=== PATIENT | male | born 1955 | race Caucasian/White ===

== ENCOUNTER 2019-03-16 16:43 | Emergency (ER) | payer MEDICAID, OTHER ==
[2019-03-16 16:58] VITALS: BP 147/62; PULSE 88
--- NOTE | 2019-03-16 17:57 | EDM.PDOC ---
ED HPI GENERAL MEDICAL PROBLEM - General Chief Complaint: Head Injury Stated Complaint: HEAD INJURY Time Seen by Provider: 03/16/19 16:55 Source of Information: Reports: Patient History Limitations: Reports: No Limitations - History of Present Illness INITIAL COMMENTS - FREE TEXT/NARRATIVE: The patient presents with a headache after a fall. He slipped on the ice and fell and hit his head. He also has some lower neck pain. He had no LOC. He is not on any blood thinners. He has no other injuries. He has no numbness or weakness. He has no nausea or vomiting. Onset: Sudden Duration: Minutes: Location: Reports: Head, Neck Quality: Reports: Sharp Severity: Moderate Improves with: Reports: None Worsens with: Reports: None Associated Symptoms: Reports: Headaches. Denies: Confusion, Chest Pain, Fever/ Chills, Nausea/Vomiting, Shortness of Breath Upper Back Pain Score (Numeric/FACES): 6 - Related Data Allergies Allergy/AdvReac Type Severity Reaction Status Date / Time No Known Allergies Allergy Verified 04/30/14 22:28 Home Meds: Home Meds Metoprolol Tartrate [Lopressor] 50 mg PO Q12HR #60 tab 05/01/14 [Rx] Potassium Chloride 10 meq PO BID #60 cap.er 05/01/14 [Rx] Social & Family History - Tobacco Use Smoking Status *Q: Unknown Ever Smoked ED ROS GENERAL - Review of Systems Review Of Systems: See Below Constitutional: Reports: No Symptoms HEENT: Reports: No Symptoms Respiratory: Reports: No Symptoms Cardiovascular: Reports: No Symptoms Endocrine: Reports: No Symptoms GI/Abdominal: Reports: No Symptoms : Reports: No Symptoms Musculoskeletal: Reports: Neck Pain Neurological: Reports: Headache ED EXAM, HEAD INJURY - Physical Exam Exam: See Below Exam Limited By: No Limitations General Appearance: Alert, No Apparent Distress Head: Other (Pain upon palpation and edema to the occipital region) Eyes: Bilateral Eye: EOMI Ears: Normal External Exam Nose: Normal Inspection Neck: Other (Pain upon palpation to the base of his neck) Respiratory: No Respiratory Distress, Lungs Clear, Normal Breath Sounds Cardiovascular: Regular Rate, Rhythm, No Edema, No Murmur GI/Abdominal Exam: Soft, Non-Tender, No Organomegaly, No Mass Back Exam: Normal Inspection Extremities: Normal Inspection Course - Vital Signs Last Recorded V/S: Last Vital Signs Temp 98.5 F 03/16/19 16:54 Pulse 88 03/16/19 16:54 Resp 18 03/16/19 16:54 BP 147/62 H 03/16/19 16:54 Pulse Ox 97 03/16/19 16:54 - Orders/Labs/Meds Orders: Active Orders 24 hr Category Date Time Status Cervical Spine wo Cont [CT] Stat Exams 03/16/19 17:02 Ordered Head wo Cont [CT] Stat Exams 03/16/19 17:01 Taken - Re-Assessments/Exams Free Text/Narrative Re-Assessment/Exam: 03/16/19 17:[address] of his neck and head. The CT of the cervical spine shows degenerative disc and facet disease without acute bony abnormality. His CT of his head shows lacunar infarcts and no acute intracranial abnormality. I will discharge him home. Departure - Departure Time of Disposition: 18:00 Disposition: Home, Self-Care 01 Condition: Good Clinical Impression: Fall Qualifiers: Encounter type: initial encounter Qualified Code(s): W19.XXXA - Unspecified fall, initial encounter Head injury Qualifiers: Encounter type: initial encounter Qualified Code(s): S09.90XA - Unspecified injury of head, initial encounter Concussion Qualifiers: Encounter type: initial encounter Loss of consciousness presence/duration: without LOC Qualified Code(s): S06.0X0A - Concussion without loss of consciousness, initial encounter - Discharge Information *PRESCRIPTION DRUG MONITORING PROGRAM REVIEWED*: No *COPY OF PRESCRIPTION DRUG MONITORING REPORT IN PATIENT RANJITH: No Referrals: Sonido Hays MD [Primary Care Provider] - 1 Week Additional Instructions: Take tylenol or motrin for any headache. Please return if you are worse such as a bad headache, vomiting or if you are not acting right. - My Orders Last 24 Hours: My Active Orders 03/16/19 17:01 Head wo Cont [CT] Stat 03/16/19 17:02 Cervical Spine wo Cont [CT] Stat - Assessment/Plan Last 24 Hours: My Active Orders 03/16/19 17:01 Head wo Cont [CT] Stat 03/16/19 17:02 Cervical Spine wo Cont [CT] Stat
--- NOTE | 2019-03-17 11:07 | CT ---
Head CT Technique: Multiple axial sections through the brain were obtained. Comparison: Prior head CT study of 04/30/14. Findings: Ventricles along with basal cisterns and sulci over the convexities are mildly prominent. Slight diminished density is noted within the periventricular white matter which is compatible with mild small vessel ischemic demyelination change. Several old lacunar infarcts are noted within the periventricular white matter. No evidence of intracranial hemorrhage. No midline shift or mass effect is seen. Mild areas of soft tissue thickening is seen within the ethmoid sinuses. Retention cyst is noted within the left maxillary sinus measuring 1.0 cm. No acute calvarial abnormality is seen. Impression: 1. Senescent change as noted above. Other findings which are believed to be incidental. 2. No acute intracranial abnormality or acute calvarial abnormality is identified. Diagnostic code #2 This report was dictated in [place] Standard Time I agree with preliminary report issued by [facility] ([facility] report finalized on 03/16/19, 6:32 PM Central Time)
--- NOTE | 2019-03-17 11:07 | CT ---
CT cervical spine Technique: Multiple axial sections were obtained from above C1 inferiorly to the bottom of T1. Reconstructed sagittal and coronal images were reviewed. Comparison: No prior cervical spine imaging is available. Findings: Mild degenerative change is noted between the dens and anterior arch of C1. Severe disc space narrowing is noted at C3-C4 with mild posterior osteophytes and larger anterior osteophytes. Mild disc space narrowing is noted at C4-C5 with slight anterior osteophytes. Severe disc space narrowing is noted at C5-C6 with mild posterior osteophytes and larger anterior osteophytes. Mild disc space narrowing is noted C6-C7 and C7-T1. Mild degenerative change is noted within the apophyseal joints of the cervical spine. Mild degenerative spurring is noted within the uncovertebral joints mostly at C3-C4 and C4-C5. Mild left-sided neural foraminal stenosis is noted at C3-C4. Other neural foramina are felt to be fairly well patent. No fracture or abnormal subluxation is seen. Impression: 1. Degenerative change. 2. Nothing acute is appreciated. Diagnostic code #2 This report was dictated in [place] Standard Time I agree with preliminary report issued by [facility] ([facility] report finalized on 03/16/19, 6:29 PM Central Time)
== END 2019-03-16 18:19 | disposition home or self-care (01) ==
LOC: JD.ED 16:43
DX: S06.0X0A Concussion without loss of consciousness, initial encounter (principal); W00.0XXA Fall on same level due to ice and snow, initial encounter
CPT/HCPCS: 70450; 70450-26; 72125; 72125-26; 99282; 99284-25

== ENCOUNTER 2019-04-14 08:23 | Emergency (ER) | payer MEDICAID ==
[2019-04-14 08:39] VITALS: BP 174/94; PULSE 94
[2019-04-14] MEDS ORDERED: Lidocaine/EPINEPHrine/Tetracaine Soln 1 ML TOP ONE (08:56)
[2019-04-14] MEDS ORDERED: Lidocaine 1% 10 ML MDV INJECT ONE (08:57)
--- NOTE | 2019-04-14 09:24 | EDM.PDOC ---
ED HPI GENERAL MEDICAL PROBLEM - General Chief Complaint: General Stated Complaint: ELBOW SWOLLEN AND TONGUE BLEEDING FOR 3 DAYS Time Seen by Provider: 04/14/19 08:32 Source of Information: Reports: Patient History Limitations: Reports: No Limitations - History of Present Illness INITIAL COMMENTS - FREE TEXT/NARRATIVE: The patient presents with left elbow swelling and tongue bleeding. He said he bit his tongue about 36 hours ago and he still is bleeding. He recently started blood thinners 2 weeks ago. He has a bad valve and they are trying the blood thinners first to avoid having to replace the valve. He also has swelling to his left elbow that he noticed yesterday. He did not injure his elbow in any way. He was at the clinic at [facility] and they were reluctant to drain it thinking this could be blood. He has no pain and this has never happened before. Onset: Gradual Duration: Day(s): Location: Reports: Upper Extremity, Left (elbow) Improves with: Reports: None Worsens with: Reports: None Associated Symptoms: Reports: No Other Symptoms - Related Data Allergies Allergy/AdvReac Type Severity Reaction Status Date / Time sonia Allergy Anaphylactic Verified 04/14/19 08:39 Shock Home Meds: Home Meds Metoprolol Tartrate [Lopressor] 50 mg PO Q12HR #60 tab 05/01/14 [Rx] Aspirin [Halfprin] 81 mg PO DAILY 04/14/19 [History] Cannabidiol (Cbd) Extract [CBD Oil] 17 mg PO ASDIRECTED 04/14/19 [History] Rosuvastatin [Crestor] 10 mg PO DAILY 04/14/19 [History] Warfarin Sodium [Coumadin] 6 mg PO DAILY 04/14/19 [History] Past Medical History HEENT History: Reports: Allergic Rhinitis, Impaired Vision Cardiovascular History: Reports: Hypertension Neurological History: Reports: Neuropathy, Peripheral - Past Surgical History Cardiovascular Surgical History: Reports: Valve Replacement, Other (See Below) Other Cardiovascular Surgeries/Procedures: 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, Social & Family History - Tobacco Use Smoking Status *Q: Never Smoker - Caffeine Use Caffeine Use: Reports: None - Recreational Drug Use Recreational Drug Use: No ED ROS GENERAL - Review of Systems Review Of Systems: See Below Constitutional: Reports: No Symptoms HEENT: Reports: Other (Bleeding tongue) Respiratory: Reports: No Symptoms Cardiovascular: Reports: No Symptoms Endocrine: Reports: No Symptoms GI/Abdominal: Reports: No Symptoms : Reports: No Symptoms Musculoskeletal: Reports: Other (Left elbow swelling) ED EXAM, GENERAL - Physical Exam Exam: See Below Exam Limited By: No Limitations General Appearance: Alert, No Apparent Distress Ears: Normal External Exam Nose: Normal Inspection Throat/Mouth: Other (bleeding from the right tip of the tongue) Head: Atraumatic, Normocephalic Neck: Normal Inspection Respiratory/Chest: No Respiratory Distress, Lungs Clear, Normal Breath Sounds Cardiovascular: Regular Rate, Rhythm, No Edema, No Murmur GI/Abdominal: Soft, Non-Tender, No Organomegaly, No Mass Extremities: Other (Edema to the left alechronon bursa. No pain upon palpation and no erythema) Course - Vital Signs Last Recorded V/S: Last Vital Signs Temp 97.9 F 04/14/19 08:35 Pulse 94 04/14/19 08:35 Resp 19 04/14/19 08:35 BP 174/94 H 04/14/19 08:35 Pulse Ox 100 04/14/19 08:35 - Orders/Labs/Meds Orders: Active Orders 24 hr Category Date Time Status Tranexamic Acid [Cyklokapron] 1,000 mg Med 04/14/19 10:45 Active Sodium Chloride 0.9% [Normal Saline] 100 ml IV ONETIME Medication Orders Tranexamic Acid 1,000 mg/ (Sodium Chloride) 110 mls @ 400 mls/hr IV ONETIME OSWALD Meds: Medications Generic Name Dose Route Start Last Admin Trade Name Freq PRN Reason Stop Dose Admin Tranexamic Acid 1,000 mg/ 110 mls @ 400 mls/hr 04/14/19 10:45 Sodium Chloride IV ONETIME OSWALD Discontinued Medications Generic Name Dose Route Start Last Admin Trade Name Freq PRN Reason Stop Dose Admin Lidocaine HCl 10 ml 04/14/19 08:57 04/14/19 09:05 Xylocaine 1% INJECT 04/14/19 08:58 10 ml ONETIME ONE Administration Lidocaine/Epinephrine 20 ml 04/14/19 10:36 04/14/19 10:53 Xylocaine 1% With Epinephrine 1:100,000 INJECT 04/14/19 10:37 20 ml ONETIME ONE Administration Lidocaine/Tetracaine 1 ml 04/14/19 08:56 04/14/19 09:04 Let Soln TOP 04/14/19 08:57 1 ml ONETIME ONE Administration - Re-Assessments/Exams Free Text/Narrative Re-Assessment/Exam: 04/14/19 09:24 I put some LET on his elbow and I will drain his elbow. I will also try to stop the bleeding on his tongue. 04/14/19 11:55 I attempted to use some silver nitrate to stop the bleeding on his tongue but it did not help. I then tried some quick clot with TXA and lidocaine with epinephrine. That did slow the bleeding some. The coumadin clinic called and hit INR is 5. They will have him hold the coumadin today. I will not be putting a needle into his elbow. I will refer him to Dr Alejandra. Departure - Departure Time of Disposition: 12:00 Disposition: Home, Self-Care 01 Condition: Good Clinical Impression: Olecranon bursitis, left elbow, Supratherapeutic INR Abrasion of tongue Qualifiers: Encounter type: initial encounter Qualified Code(s): S00.512A - Abrasion of oral cavity, initial encounter - Discharge Information *PRESCRIPTION DRUG MONITORING PROGRAM REVIEWED*: Not Applicable *COPY OF PRESCRIPTION DRUG MONITORING REPORT IN PATIENT RANJITH: Not Applicable Referrals: Sonido Hays MD [Primary Care Provider] - Forms: ED Department Discharge Additional Instructions: Call the coumadin clinic and set up a plan for your next coumadin dose. Use the quick clot sponges as needed for any more bleeding on your tongue. Please return if you are worse. Sepsis Event Note - Evaluation Sepsis Screening Result: No Definite Risk - Focused Exam Vital Signs: Vital Signs Temp Pulse Resp BP Pulse Ox 04/14/19 08:35 97.9 F 94 19 174/94 H 100 Date Exam was Performed: 04/14/19 Time Exam was Performed: 11:55 - My Orders Last 24 Hours: My Active Orders 04/14/19 10:45 Tranexamic Acid [Cyklokapron] 1,000 mg Sodium Chloride 0.9% [Normal Saline] 100 ml IV ONETIME - Assessment/Plan Last 24 Hours: My Active Orders 04/14/19 10:45 Tranexamic Acid [Cyklokapron] 1,000 mg Sodium Chloride 0.9% [Normal Saline] 100 ml IV ONETIME
[2019-04-14] MEDS ORDERED: Lidocaine 1% with EPINEPHrine 1:100,000 20 ML MDV INJECT ONE (10:36)
[2019-04-14] MEDS ORDERED: Tranexamic Acid 1,000 MG in Sodium Chloride 0.9% 100 ML IV SCH (10:45)
== END 2019-04-14 12:14 | disposition home or self-care (01) ==
LOC: JD.ED 08:23
DX: S00.512A Abrasion of oral cavity, initial encounter (principal); M70.22 Olecranon bursitis, left elbow; R79.1 Abnormal coagulation profile; I10 Essential (primary) hypertension; Z91.048 Other nonmedicinal substance allergy status; Z79.82 Long term (current) use of aspirin; Z79.899 Other long term (current) drug therapy; X58.XXXA Exposure to other specified factors, initial encounter
CPT/HCPCS: 99283; J2001

== ENCOUNTER 2019-04-15 21:16 | Emergency (ER) | payer MEDICAID ==
[2019-04-15 21:33] VITALS: BP 143/96; PULSE 88
--- NOTE | 2019-04-15 21:38 | EDM.PDOC ---
ED HPI GENERAL MEDICAL PROBLEM - General Chief Complaint: General Stated Complaint: SANTOSUNGE IS BLEEDING AND BLOOD IN URINE Time Seen by Provider: 04/15/19 21:38 - History of Present Illness INITIAL COMMENTS - FREE TEXT/NARRATIVE: 63-year-old male presents to the emergency room with continued bleeding. 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 Yesterday the patient was seen here his INR was 5 he was bleeding into an elbow no apparent trauma and he did inadvertently bite his tongue and has had continued bleeding with that. They got the bleeding to slow down on the tongue but it did not completely stop today the patient noticed that his urine was turning red to maroon color. His tongue continues to bleed. The Coumadin clinic said his INR was down to 3.8 earlier today. The patient does not have any dizziness lightheadedness. - Related Data Allergies Allergy/AdvReac Type Severity Reaction Status Date / Time sonia Allergy Anaphylactic Verified 04/15/19 21:34 Shock Home Meds: Home Meds Metoprolol Tartrate [Lopressor] 50 mg PO Q12HR #60 tab 05/01/14 [Rx] Aspirin [Halfprin] 81 mg PO DAILY 04/14/19 [History] Cannabidiol (Cbd) Extract [CBD Oil] 17 mg PO ASDIRECTED 04/14/19 [History] Rosuvastatin [Crestor] 10 mg PO DAILY 04/14/19 [History] Warfarin Sodium [Coumadin] 6 mg PO DAILY 04/14/19 [History] Past Medical History HEENT History: Reports: Allergic Rhinitis, Impaired Vision Cardiovascular History: Reports: Hypertension Neurological History: Reports: Neuropathy, Peripheral - Past Surgical History Cardiovascular Surgical History: Reports: Valve Replacement, Other (See Below) Other Cardiovascular Surgeries/Procedures: 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, Social & Family History - Tobacco Use Smoking Status *Q: Never Smoker - Caffeine Use Caffeine Use: Reports: Soda - Recreational Drug Use Recreational Drug Use: No ED ROS GENERAL - Review of Systems Review Of Systems: See Below Constitutional: Reports: No Symptoms Respiratory: Reports: No Symptoms Cardiovascular: Reports: No Symptoms GI/Abdominal: Reports: No Symptoms ED EXAM, GENERAL - Physical Exam Exam: See Below Exam Limited By: No Limitations General Appearance: Alert, No Apparent Distress Throat/Mouth: Other (The area on his tongue is lightly bleeding.) Respiratory/Chest: No Respiratory Distress, Lungs Clear, Normal Breath Sounds Cardiovascular: Regular Rate, Rhythm, No Edema, Systolic Murmur (Rumbling murmur heard best in the upper sternal regions both right and left this is a 3/ 6 systolic murmur) (Male) Exam: Other (Hematuria noted on his urine sample) Back Exam: Normal Inspection. No: CVA Tenderness (L), CVA Tenderness (R) Neurological: Alert, Oriented, Normal Cognition Course - Vital Signs Last Recorded V/S: Last Vital Signs Temp 37.2 C 04/15/19 21:30 Pulse 88 04/15/19 21:30 Resp 15 04/15/19 21:30 BP 143/96 H 04/15/19 21:30 Pulse Ox 96 04/15/19 21:30 - Orders/Labs/Meds Orders: Active Orders 24 hr Category Date Time Status UA W/MICROSCOPIC [URIN] Stat Lab 04/15/19 22:29 Results Labs: Laboratory Tests 04/15/19 04/15/19 04/15/19 Range/Units 21:55 21:55 22:29 WBC 7.77 (4.23-9.07) K/mm3 RBC 4.24 L (4.63-6.08) M/mm3 Hgb 12.8 L D (13.7-17.5) gm/dl Hct 37.4 L (40.1-51.0) % MCV 88.2 (79.0-92.2) fl MCH 30.2 (25.7-32.2) pg MCHC 34.2 (32.2-35.5) g/dl RDW Std Deviation 44.1 H (35.1-43.9) fL Plt Count 278 (163-337) K/mm3 MPV 10.4 (9.4-12.3) fl Neutrophils % (Manual) 64 H (40-60) % Band Neutrophils % 0 (0-10) % Lymphocytes % (Manual) 28 (20-40) % Atypical Lymphs % 0 % Monocytes % (Manual) 8 (2-10) % Eosinophils % (Manual) 0 L (0.8-7.0) % Basophils % (Manual) 0 L (0.2-1.2) Platelet Estimate Adequate RBC Morph Comment Normal PT 32.9 H (9.7-12.0) SECONDS INR 3.23 Urine Color Red H (Yellow) Urine Appearance Turbid H (Clear) Urine pH 5.5 (5.0-8.0) Ur Specific [place] 1.025 (1.005-1.030) Urine Protein 3+ H (Negative) Urine Glucose (UA) Negative (Negative) Urine Ketones 1+ H (Negative) Urine Occult Blood 3+ H (Negative) Urine Nitrite Negative (Negative) Urine Bilirubin 3+ H (Negative) Urine Urobilinogen 4.0 H (0.2-1.0) Ur Leukocyte Esterase 3+ H (Negative) - Re-Assessments/Exams Free Text/Narrative Re-Assessment/Exam: 04/15/19 22:55 Patient's hemoglobin hematocrit is 12.8 and 37.4% respectively. This is down slightly from 4 years ago do not know the significance of that. His INR is down to 3.23. We attempted to use some quick clot on his tongue this did stop the bleeding. His left elbow is wrapped in Momo wrap to help prevent extension. He has significant hematuria. I do not believe this is infected given the clinical scenario and after discussion with the patient we will not start antibiotics empirically. Also discussed with the patient is vitamin K or FFP and he is quite comfortable waiting and watching. I discussed the patient's case with Dr. Sommers cardiothoracic surgeon at [facility] in [place] flotation tank operator for the patient's surgeon Dr. Humphrey and his recommendation is just stop the Coumadin follow-up with Dr. Humphrey at the end of this week or first part of next week. 04/15/19 23:05 Departure - Departure Time of Disposition: 22:57 Disposition: Home, Self-Care 01 Clinical Impression: Warfarin-induced coagulopathy - Discharge Information Referrals: Sonido Hays MD [Primary Care Provider] - Forms: ED Department Discharge Additional Instructions: Return to the emergency room with any questions problems or worsening symptoms. Use the quick clot to your tongue as needed. As we discussed stop the Coumadin. Follow-up with Dr. Humphrey on for an appointment to discuss this. Follow-up with Dr. Hays to make sure the hematuria or blood in your urine resolves Sepsis Event Note - Evaluation Sepsis Screening Result: No Definite Risk - Focused Exam Vital Signs: Vital Signs Temp Pulse Resp BP Pulse Ox 04/15/19 21:30 37.2 C 88 15 143/96 H 96 Date Exam was Performed: 04/15/19 Time Exam was Performed: 22:45 - My Orders Last 24 Hours: My Active Orders 04/15/19 22:29 UA W/MICROSCOPIC [URIN] Stat - Assessment/Plan Last 24 Hours: My Active Orders 04/15/19 22:29 UA W/MICROSCOPIC [URIN] Stat
== END 2019-04-15 23:15 | disposition home or self-care (01) ==
LOC: JD.ED 21:16
DX: D68.9 Coagulation defect, unspecified (principal); I10 Essential (primary) hypertension; Z79.82 Long term (current) use of aspirin; Z79.01 Long term (current) use of anticoagulants; Z91.018 Allergy to other foods; Z79.899 Other long term (current) drug therapy
CPT/HCPCS: 36415; 81001; 85007; 85027; 85610; 99283

== ENCOUNTER 2019-09-20 10:04 | Emergency (ER) | payer MEDICAID ==
[2019-09-20 10:13] VITALS: PULSE 78
[2019-09-20 10:16] VITALS: BP 148/85
--- NOTE | 2019-09-20 10:26 | EDM.PDOC ---
ED HPI GENERAL MEDICAL PROBLEM - General Chief Complaint: Lower Extremity Injury/Pain Stated Complaint: L LEG PAIN/POST HEART SURGERY Time Seen by Provider: 09/20/19 10:14 Source of Information: Reports: Patient History Limitations: Reports: No Limitations - History of Present Illness INITIAL COMMENTS - FREE TEXT/NARRATIVE: The patient presents with left knee pain. This started yesterday. He recently had open heart surgery where they replaced a valve. He is on coumadin. He had his INR checked at the clinic and it was 2.3 yesterday. When he was out for that that is when the pain started. He has no injury. He has pain behind the knee. He has known cartilage issues with both knees but no pain like this before. He has no history of DVT or PE. He has no chest pain or shortness of breath. His surgery was August 14. Onset: Gradual Duration: Day(s): (Yesterday) Location: Reports: Lower Extremity, Left (knee) Quality: Reports: Sharp Severity: Moderate Improves with: Reports: Immobilization Worsens with: Reports: Movement Context: Denies: Trauma Associated Symptoms: Reports: No Other Symptoms Left Knee Pain Score (Numeric/FACES): 7 - Related Data Allergies Allergy/AdvReac Type Severity Reaction Status Date / Time sonia Allergy Anaphylactic Verified 09/20/19 10:12 Shock Home Meds: Home Meds Rosuvastatin [Crestor] 20 mg PO DAILY 04/14/19 [History] Warfarin Sodium [Coumadin] 5 mg PO ASDIRECTED 04/14/19 [History] Enoxaparin [Lovenox] 100 mg SUBCUT Q12H 09/20/19 [History] Losartan [Cozaar] 75 mg PO DAILY 09/20/19 [History] carvediloL [Carvedilol] 6.25 mg PO BID 09/20/19 [History] hydroCHLOROthiazide [Hydrochlorothiazide] 25 mg PO DAILY 09/20/19 [History] Past Medical History HEENT History: Reports: Allergic Rhinitis, Impaired Vision Cardiovascular History: Reports: Hypertension Neurological History: Reports: Neuropathy, Peripheral Hematologic History: Reports: Anticoagulation Therapy - Past Surgical History Cardiovascular Surgical History: Reports: Valve Replacement, Other (See Below) Other Cardiovascular Surgeries/Procedures: 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, Social & Family History - Family History Family Medical History: Noncontributory - Tobacco Use Smoking Status *Q: Never Smoker - Caffeine Use Caffeine Use: Reports: Soda - Recreational Drug Use Recreational Drug Use: No Review of Systems - Review of Systems Review Of Systems: See Below Constitutional: Reports: No Symptoms Eyes: Reports: No Symptoms Ears: Reports: No Symptoms Nose: Reports: No Symptoms Mouth/Throat: Reports: No Symptoms Respiratory: Reports: No Symptoms Cardiovascular: Reports: No Symptoms GI/Abdominal: Reports: No Symptoms Genitourinary: Reports: No Symptoms Musculoskeletal: Reports: Other (Left knee pain) ED EXAM, GENERAL - Physical Exam Exam: See Below Exam Limited By: No Limitations General Appearance: Alert, No Apparent Distress Ears: Normal External Exam Nose: Normal Inspection Head: Atraumatic, Normocephalic Neck: Normal Inspection Respiratory/Chest: No Respiratory Distress, Lungs Clear, Normal Breath Sounds Cardiovascular: Regular Rate, Rhythm, No Edema, No Murmur GI/Abdominal: Soft, Non-Tender, No Organomegaly, No Mass Extremities: Other (Mild pain upon palpation to the left posterior knee. Good sensation and pulses distally. No edema noted.) Course - Vital Signs Last Recorded V/S: Last Vital Signs Temp 97.3 F 09/20/19 10:09 Pulse 78 09/20/19 10:09 Resp 16 09/20/19 10:09 BP 148/85 H 09/20/19 10:15 Pulse Ox 100 09/20/19 10:09 - Orders/Labs/Meds Orders: Active Orders 24 hr Category Date Time Status VL Duplex Lwr Ext Veins Ltd Lt [US] Stat Exams 09/20/19 10:22 Taken - Re-Assessments/Exams Free Text/Narrative Re-Assessment/Exam: 09/20/19 11:43 I ordered an US of his leg and it was negative for DVT. I will discharge him home. Departure - Departure Time of Disposition: 11:45 Disposition: Home, Self-Care 01 Condition: Good Clinical Impression: Left leg pain - Discharge Information *PRESCRIPTION DRUG MONITORING PROGRAM REVIEWED*: Not Applicable *COPY OF PRESCRIPTION DRUG MONITORING REPORT IN PATIENT RANJITH: Not Applicable Referrals: Sonido Hays MD [Primary Care Provider] - 1 Week Forms: ED Department Discharge Additional Instructions: Take your medication as prescribed. Take tylenol as needed for pain. You could try icing your leg for 15 minutes 3 times per day for 2 days. That may help. Please return if you are worse. Sepsis Event Note - Evaluation Sepsis Screening Result: No Definite Risk - Focused Exam Vital Signs: Vital Signs Temp Pulse Resp BP Pulse Ox 09/20/19 10:15 148/85 H 09/20/19 10:09 97.3 F 78 16 100 Date Exam was Performed: 09/20/19 Time Exam was Performed: 11:43 - My Orders Last 24 Hours: My Active Orders 09/20/19 10:22 VL Duplex Lwr Ext Veins Ltd Lt [US] Stat - Assessment/Plan Last 24 Hours: My Active Orders 09/20/19 10:22 VL Duplex Lwr Ext Veins Ltd Lt [US] Stat
--- NOTE | 2019-09-20 11:45 | US ---
Left lower extremity deep venous ultrasound: Duplex and color Doppler evaluation was obtained of the left common femoral, proximal greater saphenous, superficial femoral, popliteal, posterior tibial and peroneal veins. Right common femoral vein was also evaluated. Findings: Normal phasic flow, augmentation and compression is seen. Slightly slow flow is noted within the popliteal vein suggesting change from venous valvular disease. Impression: 1. Nothing is seen to indicate deep venous thrombosis with left lower extremity or within the right common femoral vein. Diagnostic code #2 This report was dictated in MDT
== END 2019-09-20 11:48 | disposition home or self-care (01) ==
LOC: JD.ED 10:04
DX: M25.562 Pain in left knee (principal); I10 Essential (primary) hypertension; Z91.048 Other nonmedicinal substance allergy status; Z79.899 Other long term (current) drug therapy
CPT/HCPCS: 93971-26-LT; 93971-LT; 99282; 99283-25

== ENCOUNTER 2020-07-16 09:19 | Emergency (ER) | payer MEDICAID ==
[2020-07-16 09:37] VITALS: BP 147/65; PULSE 90
--- NOTE | 2020-07-16 09:50 | EDM.PDOC ---
ED HPI GENERAL MEDICAL PROBLEM - General Chief Complaint: Upper Extremity Injury/Pain Stated Complaint: RT WRIST INJURY Time Seen by Provider: 07/16/20 09:35 Source of Information: Reports: Patient History Limitations: Reports: No Limitations - History of Present Illness INITIAL COMMENTS - FREE TEXT/NARRATIVE: The patient presents with right wrist pain. He was helping a friend move and was moving a couch. He tripped and fell and hurt his right wrist. He did not hit his head or hurt his neck. He is on coumadin and there is some swelling and bruising. He is right handed. He has no other injuries. This happened last night. Onset: Sudden Duration: Day(s): (last night) Location: Reports: Upper Extremity, Right (wrist) Quality: Reports: Sharp Severity: Moderate Improves with: Reports: None Worsens with: Reports: None Associated Symptoms: Reports: No Other Symptoms Right Wrist Pain Score (Numeric/FACES): 9 - Related Data Allergies Allergy/AdvReac Type Severity Reaction Status Date / Time sonia Allergy Anaphylactic Verified 07/16/20 09:37 Shock Home Meds: Home Meds Rosuvastatin [Crestor] 20 mg PO DAILY 04/14/19 [History] Warfarin Sodium [Coumadin] 5 mg PO ASDIRECTED 04/14/19 [History] Enoxaparin [Lovenox] 100 mg SUBCUT Q12H 09/20/19 [History] Losartan [Cozaar] 75 mg PO DAILY 09/20/19 [History] carvediloL [Carvedilol] 6.25 mg PO BID 09/20/19 [History] hydroCHLOROthiazide [Hydrochlorothiazide] 25 mg PO DAILY 09/20/19 [History] Past Medical History HEENT History: Reports: Allergic Rhinitis, Impaired Vision Cardiovascular History: Reports: Hypertension Neurological History: Reports: Neuropathy, Peripheral Hematologic History: Reports: Anticoagulation Therapy - Past Surgical History Cardiovascular Surgical History: Reports: Valve Replacement, Other (See Below) Other Cardiovascular Surgeries/Procedures: 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, Social & Family History - Family History Family Medical History: No Pertinent Family History - Tobacco Use Tobacco Use Status *Q: Never Tobacco User Second Hand Smoke Exposure: No - Caffeine Use Caffeine Use: Reports: None - Recreational Drug Use Recreational Drug Use: No Review of Systems - Review of Systems Review Of Systems: See Below Constitutional: Reports: No Symptoms Eyes: Reports: No Symptoms Ears: Reports: No Symptoms Nose: Reports: No Symptoms Mouth/Throat: Reports: No Symptoms Respiratory: Reports: No Symptoms Cardiovascular: Reports: No Symptoms GI/Abdominal: Reports: No Symptoms Musculoskeletal: Reports: Other (right wrist swelling and pain) ED EXAM, GENERAL - Physical Exam Exam: See Below Exam Limited By: No Limitations General Appearance: Alert, No Apparent Distress Ears: Normal External Exam Nose: Normal Inspection Head: Atraumatic, Normocephalic Respiratory/Chest: No Respiratory Distress Extremities: Other (Pain upon palpation to the right wrist with edema and some ecchymosis to the volar aspect of the wrist. Good sensation pulses distally.) Course - Vital Signs Last Recorded V/S: Last Vital Signs Temp 97.5 F 07/16/20 09:35 Pulse 90 07/16/20 09:35 Resp 18 07/16/20 09:35 BP 147/65 H 07/16/20 09:35 Pulse Ox 99 07/16/20 09:35 - Orders/Labs/Meds Orders: Active Orders 24 hr Category Date Time Status Wrist Comp Min 3V Rt [CR] Stat Exams 07/16/20 09:46 Taken - Re-Assessments/Exams Free Text/Narrative Re-Assessment/Exam: 07/16/20 09:50 I ordered an x-ray of his wrist. 07/16/20 10:21 His x-ray looks good. I will get him a splint for his wrist. He has a sprain. Departure - Departure Time of Disposition: 10:30 Disposition: Home, Self-Care 01 Condition: Good Clinical Impression: Fall Qualifiers: Encounter type: initial encounter Qualified Code(s): W19.XXXA - Unspecified fall, initial encounter Right wrist sprain Qualifiers: Encounter type: initial encounter Qualified Code(s): S63.501A - Unspecified sprain of right wrist, initial encounter - Discharge Information *PRESCRIPTION DRUG MONITORING PROGRAM REVIEWED*: Not Applicable *COPY OF PRESCRIPTION DRUG MONITORING REPORT IN PATIENT RANJITH: Not Applicable Referrals: Sonido Hays MD [Primary Care Provider] - 1 Week Forms: ED Department Discharge Additional Instructions: Ice your wrist for 15 minutes 3 times per day for 2 days. Take tylenol for pain. Wear the wrist splint for a week or two for stabilization and to avoid further injury. Follow up with your doctor within a week if you are not better to have another wrist x-ray. Sepsis Event Note (ED) - Evaluation Sepsis Screening Result: No Definite Risk - Focused Exam Vital Signs: Vital Signs Temp Pulse Resp BP Pulse Ox 07/16/20 09:35 97.5 F 90 18 147/65 H 99 - My Orders Last 24 Hours: My Active Orders 07/16/20 09:46 Wrist Comp Min 3V Rt [CR] Stat - Assessment/Plan Last 24 Hours: My Active Orders 07/16/20 09:46 Wrist Comp Min 3V Rt [CR] Stat
--- NOTE | 2020-07-16 10:28 | CR ---
Right wrist: 4 views of the right wrist are obtained. Comparison: No previous wrist study. Joint spaces are preserved. Sclerosis is noted within the fifth metacarpal which is felt to be benign. No acute fracture, dislocation or other bony abnormality is appreciated. Impression: 1. Findings which are felt to be incidental as noted above. 2. Nothing acute is appreciated on right wrist exam. Diagnostic code #2
== END 2020-07-16 10:37 | disposition home or self-care (01) ==
LOC: JD.ED 09:19
DX: S63.501A Unspecified sprain of right wrist, initial encounter (principal); I10 Essential (primary) hypertension; G62.9 Polyneuropathy, unspecified; Z79.01 Long term (current) use of anticoagulants; Z79.899 Other long term (current) drug therapy; W01.0XXA Fall on same level from slipping, tripping and stumbling without subsequent striking against object, initial encounter
CPT/HCPCS: 73110-26-RT; 73110-RT; 99283

== ENCOUNTER 2020-12-27 12:00 | Emergency (ER) | payer MEDICARE, MEDICAID ==
[2020-12-27 13:16] VITALS: BP 148/94; PULSE 82
--- NOTE | 2020-12-27 13:53 | EDM.PDOC ---
ED HPI GENERAL MEDICAL PROBLEM - General Chief Complaint: Lower Extremity Injury/Pain Stated Complaint: NUMBNESS FROM THE KNEE DOWN Time Seen by Provider: 12/27/20 13:50 Source of Information: Reports: Patient History Limitations: Reports: No Limitations - History of Present Illness INITIAL COMMENTS - FREE TEXT/NARRATIVE: 65-year-old male attends the ED complaining of transient numbness from knee down to his ankle starting a week ago but subsequently resolved over the last 2 days. No known injury to the knee. 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 Patient gets numbness and tingling and pins and needle sensation in both hands and feet intermittently suggesting neuropathy symptoms. He states he walks with a slow gait and is very careful on stairs due to his knees. No recent changes to any of his medications. He states he is prediabetic. He does not check his blood sugars. Onset: Sudden Onset Date: 12/20/20 (Developed numbness and tingling in his right lower extremity down to his ankle and involving his foot but he cannot member which side about a week ago the week the numbness and tingling gradually improved over period of the last 3 days. He was concerned there was a problem with the circulation to his leg.) Duration: Day(s):, Improving (At the time he was seen in the ED had no further symptoms of numbness or tingling in his right lower extremity) Location: Reports: Lower Extremity, Right (From above his knee to his ankle and portions of his foot) Quality: Reports: Other Severity: Moderate (Numbness and tingling) Improves with: Reports: Other (Improved with time.) Worsens with: Reports: None Context: Denies: Activity, Exercise, Lifting, Sick Contact, Trauma, Other Associated Symptoms: Reports: Shortness of Breath (On occasion.). Denies: No Other Symptoms, Confusion, Chest Pain, Cough, cough w sputum, Diaphoresis, Fever/Chills, Headaches, Loss of Appetite, Malaise, Nausea/Vomiting, Rash, Seizure, Syncope Treatments [employer] MECH[employer]ICIAN: Reports: Other (see below) (Only medications prescribed.) - Related Data Allergies Allergy/AdvReac Type Severity Reaction Status Date / Time sonia Allergy Severe Anaphylactic Verified 12/27/20 13:15 Shock Home Meds: Home Meds Rosuvastatin [Crestor] 20 mg PO DAILY 04/14/19 [History] Warfarin Sodium [Coumadin] 5 mg PO ASDIRECTED 04/14/19 [History] Enoxaparin [Lovenox] 100 mg SUBCUT Q12H 09/20/19 [History] Losartan [Cozaar] 75 mg PO DAILY 09/20/19 [History] carvediloL [Carvedilol] 6.25 mg PO BID 09/20/19 [History] hydroCHLOROthiazide [Hydrochlorothiazide] 25 mg PO DAILY 09/20/19 [History] Past Medical History HEENT History: Reports: Allergic Rhinitis, Impaired Vision Cardiovascular History: Reports: Heart Valve Replacement (Patient has had both his atrial and mitral valves replaced at the same setting. This was carried out by Dr. 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, Social & Family History - Family History Family Medical History: No Pertinent Family History - Tobacco Use Tobacco Use Status *Q: Never Tobacco User - Caffeine Use Caffeine Use: Reports: Soda - Recreational Drug Use Recreational Drug Use: No - Living Situation & Occupation Living situation: Reports: Single Occupation: Retired Review of Systems - Review of Systems Review Of Systems: See Below Constitutional: Denies: Chills, Diaphoresis, Fever, Weakness, Other Eyes: Reports: No Symptoms Ears: Reports: No Symptoms Nose: Reports: No Symptoms Mouth/Throat: Reports: No Symptoms Respiratory: Reports: Shortness of Breath (On occasion but) Cardiovascular: Reports: Palpitations (Rare.). Denies: Chest Pain, Edema, Irregular Heart Rate, Lightheadedness GI/Abdominal: Reports: Constipation (Occasional.) Genitourinary: Reports: Other (Slow urinary stream with nocturia x2) Musculoskeletal: Reports: Neck Pain, Shoulder Pain (Bilateral knee and hip pain), Back Pain, Joint Pain Skin: Reports: Bruising (This is easily as he is on.) Neurological: Reports: Other (Reports intermittent [id number] sensation both hands both feet). Denies: Confusion, Dizziness, Headache, Numbness, Seizure, Syncope, Tingling, Difficulty Walking, Weakness Psychiatric: Reports: Anxiety ED EXAM, GENERAL - Physical Exam Exam: See Below Exam Limited By: No Limitations General Appearance: Alert, WD/WN, No Apparent Distress, Other (Temperature is 36.4 with a heart rate of 82 and sinus respiratory to 16 O2 sats are 98% room air BP 1 4894) Eye Exam: Bilateral Eye: Normal Inspection (No blepharal pallor or scleral icterus) Throat/Mouth: Normal Inspection, Normal Lips, Normal Oropharynx. No: Normal Teeth Head: Atraumatic, Normocephalic Neck: Normal Inspection, Full Range of Motion, Limited Range of Motion (Preoperative some lateral rotation with loss of 10 lateral flexion and lateral rotation. 5 loss of extension 5 loss of flexion.). No: Carotid Bruit, Lymphadenopathy (R) Respiratory/Chest: No Respiratory Distress, Lungs Clear, Normal Breath Sounds, No Accessory Muscle Use, Other (Mechanical valves present anterior chest with well-healed midline sternotomy incision) Cardiovascular: Normal Peripheral Pulses, Regular Rate, Rhythm, No Edema, No Gallop, No Murmur, No Rub Peripheral Pulses: 1+: Dorsalis Pedis (R), 2+: Carotid (L), Carotid (R), Posterior Tibial (L), Posterior Tibial (R), Dorsalis Pedis (L) GI/Abdominal: Normal Bowel Sounds, Soft, Non-Tender, No Organomegaly, No Mass, Pelvis Stable Back Exam: Normal Inspection, Decreased Range of Motion (Loss of 15 forward flexion loss of 5 extension). No: CVA Tenderness (L), CVA Tenderness (R) Extremities: Normal Inspection, Normal Range of Motion, Non-Tender, No Pedal Edema, Other (Neither knee is warm to palpation.) Neurological: Alert ( There is evidence of degenerative arthritic changes of both knees), Oriented, CN II-XII Intact, Normal Cognition, Normal Gait, Other (Motor power and tone in the right lower extremity is completely normal. Normal sensation now both laterally and medially of the foot and lower extremity.) Psychiatric: Normal Affect, Normal Mood Skin Exam: Warm, Dry, Intact, Normal Color, No Rash Course - Vital Signs Last Recorded V/S: Last Vital Signs Temp 36.4 C 12/27/20 13:13 Pulse 82 12/27/20 13:13 Resp 16 12/27/20 13:13 BP 148/94 H 12/27/20 13:13 Pulse Ox 98 12/27/20 13:13 - Radiology Interpretation Free Text/Narrative:: 65-year-old male presents to the ED for evaluation of transient numbness and ti ngling in his right lower extremity from the knee down to his foot that occurred about a week ago and gradually resolved over the last 2 days. Cause is unclear. He does not think he crosses legs for too long to cause compression of the common peroneal nerve. He does have adequate circulation to both feet with 2+ posterior tibials bilaterally but only 1+ dorsalis pedis on the right foot. Both feet and legs are warm to touch. His gait is essentially normal. At this time I do not see a need for further investigations or lab work. Patient reassured to return for follow-up if similar symptoms occur or follow-up with his primary care physician Departure - Departure Time of Disposition: 13:51 Disposition: Home, Self-Care 01 Condition: Fair Clinical Impression: Paresthesia of right lower extremity - Discharge Information *PRESCRIPTION DRUG MONITORING PROGRAM REVIEWED*: Not Applicable *COPY OF PRESCRIPTION DRUG MONITORING REPORT IN PATIENT RANJITH: Not Applicable Instructions: Paresthesia, [id number] Referrals: Sonido Hays MD [Primary Care Provider] - Forms: ED Department Discharge Additional Instructions: Evaluation in the emergency room today in regards to transient paresthesia which means numbness and tingling sensation from your right knee down to your foot for the last several days. It is gone at the time of examination in the emergency room. Motor power and strength in the lower extremity is normal and circulation to the right foot and leg is normal as well. As you indicated you get [id number] sensation in your hands and feet intermittently which is a sign of peripheral neuropathy. Sensory nerve to your foot is on the outside of your right knee and could cause numbness and tingling in your lower extremity if the nerve is compressed for any length of time. This is called the common peroneal nerve. At this point time as long as the symptoms have gone away no treatment is indicated or further investigations. If it persists follow-up with your personal care physician to have it further investigated. Sepsis Event Note (ED) - Evaluation Sepsis Screening Result: No Definite Risk - Focused Exam Vital Signs: Vital Signs Temp Pulse Resp BP Pulse Ox 12/27/20 13:13 36.4 C 82 16 148/94 H 98
== END 2020-12-27 14:02 | disposition home or self-care (01) ==
LOC: JD.ED 12:00
DX: R20.2 Paresthesia of skin (principal); M25.561 Pain in right knee; M25.562 Pain in left knee; M25.551 Pain in right hip; M25.552 Pain in left hip; I10 Essential (primary) hypertension; Z91.09 Other allergy status, other than to drugs and biological substances; Z79.899 Other long term (current) drug therapy; Z79.01 Long term (current) use of anticoagulants
CPT/HCPCS: 99283

== ENCOUNTER 2021-05-22 13:12 | Emergency (ER) | payer MEDICARE, MEDICAID ==
[2021-05-22 13:24] VITALS: BP 177/109; PULSE 94
== END 2021-05-22 14:54 | disposition home or self-care (01) ==
LOC: JD.ED 13:12
DX: S63.502A Unspecified sprain of left wrist, initial encounter (principal); Z79.01 Long term (current) use of anticoagulants; Z79.899 Other long term (current) drug therapy; W18.30XA Fall on same level, unspecified, initial encounter
CPT/HCPCS: 73110-26-LT; 73110-LT; 99283; 99283-25

== ENCOUNTER 2021-06-17 06:06 | Emergency (ER) | payer MEDICARE, MEDICAID ==
[2021-06-17] MEDS ORDERED: Oxymetazoline 0.05% Nasal Spray 30 ML Bottle ONE (06:21)
[2021-06-17] MEDS ORDERED: Oxymetazoline 0.05% Nasal Spray 30 ML Bottle NAS ONE (06:51)
[2021-06-17] MEDS ORDERED: Phytonadione ORAL 2.5mg/2.5ml Soln Simple Syrup U/D PO ONE (07:10)
[2021-06-17] MEDS ORDERED: oxyCODONE 5 MG Tab PO ONE (07:12)
[2021-06-17 07:33] VITALS: BP 175/86; PULSE 88
== END 2021-06-17 07:40 | disposition home or self-care (01) ==
LOC: JD.ED 06:06
DX: R04.0 Epistaxis (principal); I10 Essential (primary) hypertension; Z91.048 Other nonmedicinal substance allergy status; Z79.899 Other long term (current) drug therapy; Z79.01 Long term (current) use of anticoagulants
CPT/HCPCS: 36415; 85025; 85610; 99284; A9270; 30901

== ENCOUNTER 2021-06-17 13:04 | Emergency (ER) | payer MEDICARE, MEDICAID | END 2021-06-17 13:29 | disposition home or self-care (01) | LOC: JD.ED 13:04 | DX: Z53.21 Procedure and treatment not carried out due to patient leaving prior to being seen by health care provider (principal) ==

== ENCOUNTER 2021-06-18 08:27 | Emergency (ER) | payer MEDICARE, MEDICAID ==
[2021-06-18 08:41] VITALS: BP 161/87; PULSE 103
== END 2021-06-18 11:00 | disposition home or self-care (01) ==
LOC: JD.ED 08:27
DX: R04.0 Epistaxis (principal); I48.91 Unspecified atrial fibrillation; I10 Essential (primary) hypertension; Z91.048 Other nonmedicinal substance allergy status; Z79.899 Other long term (current) drug therapy; Z79.01 Long term (current) use of anticoagulants
CPT/HCPCS: 36415; 85025; 85610; 99283

== ENCOUNTER 2021-06-20 09:00 | Emergency (ER) | payer MEDICARE, MEDICAID ==
[2021-06-20 10:51] VITALS: BP 148/80; PULSE 82
== END 2021-06-20 10:50 | disposition home or self-care (01) ==
LOC: JD.ED 09:00
DX: R04.0 Epistaxis (principal); I10 Essential (primary) hypertension; Z91.048 Other nonmedicinal substance allergy status; Z79.01 Long term (current) use of anticoagulants; Z79.899 Other long term (current) drug therapy
CPT/HCPCS: 99282; 99283

== ENCOUNTER 2022-02-03 17:15 | Emergency (ER) | payer MEDICARE, MEDICAID ==
[2022-02-03 19:44] VITALS: BP 120/65; PULSE 86
== END 2022-02-03 19:40 | disposition home or self-care (01) ==
LOC: JD.ED 17:15
DX: S00.83XA Contusion of other part of head, initial encounter (principal); S40.011A Contusion of right shoulder, initial encounter; I10 Essential (primary) hypertension; Z91.018 Allergy to other foods; Z79.899 Other long term (current) drug therapy; Z79.01 Long term (current) use of anticoagulants; W06.XXXA Fall from bed, initial encounter
CPT/HCPCS: 36415; 70450; 70450-26; 73030-26-RT; 73030-RT; 80053; 83605; 85025; 85610; 85730; 99284

== ENCOUNTER 2022-12-02 00:11 | Emergency (ER) | payer MEDICARE ==
[2022-12-02] MEDS ORDERED: Lactated Ringers 1,000 ML IV ONE (00:47)
[2022-12-02 01:04] LABS: BASOPHILS ABSOLUTE AUTO 0.05 K/mm3 (0.01-0.08); BASOPHILS PERCENT AUTO 0.7 % (0.1-1.2); EOSINOPHILS ABSOLUTE AUTO 0.12 K/mm3 (0.04-0.54); EOSINOPHILS PERCENT AUTO 1.7 (0.8-7.0); HEMATOCRIT 35.8 % (40.1-51.0); HEMOGLOBIN 12.5 gm/dl (13.7-17.5); IMMATURE GRAN ABSOLUTE AUTO 0.01 K/mm3 (0.00-0.10); IMMATURE GRAN PERCENT AUTO 0.1 % (<=1.0); LYMPHOCYTES ABSOLUTE AUTO 1.37 K/mm3 (1.32-3.57); LYMPHOCYTES PERCENT AUTO 19.7 % (21.8-53.1); MEAN CORPUSCULAR HEMOGLOBIN 33.8 pg (25.7-32.2); MEAN CORPUSCULAR HGB CONC 34.9 g/dl (32.2-35.5); MEAN CORPUSCULAR VOLUME 96.8 fl (79.0-92.2); MEAN PLATELET VOLUME 10.7 fl (9.4-12.3); MONOCYTES ABSOLUTE AUTO 0.88 K/mm3 (0.30-0.82); MONOCYTES PERCENT AUTO 12.6 % (5.3-12.2); NEUTROPHILS ABSOLUTE AUTO 4.54 K/mm3 (1.78-5.38); NEUTROPHILS PERCENT AUTO 65.2 % (34.0-67.9); PLATELET COUNT,PLT 222 K/mm3 (163-337); WHITE BLOOD CELL COUNT,WBC 6.97 K/mm3 (4.23-9.07)
[2022-12-02 01:26] LABS: A/G RATIO 1.2 (1-2); ALBUMIN 3.7 g/dl (3.4-5.0); ANION GAP 12.3 (5-15); BILIRUBIN TOTAL 1.2 mg/dL (0.2-1.0); BUN/CREATININE RATIO 17.8 (14-18); CALCIUM 8.8 mg/dL (8.5-10.1); CREATININE 0.9 mg/dL (0.7-1.3); EST CRCL DRUG DOSING (CG) 77.06 mL/min; PROTEIN TOTAL,TP 6.9 g/dl (6.4-8.2)
[2022-12-02 01:28] LABS: APPEARANCE,URINE CLEAR (Clear); BILIRUBIN,URINE NEGATIVE (Negative); COLOR,URINE LIGHT YELLOW (Yellow); GLUCOSE,URINE NEGATIVE (Negative); KETONES,URINE NEGATIVE (Negative); LEUKOCYTE ESTERASE,URINE 1+ (Negative); NITRITE,URINE NEGATIVE (Negative); OCCULT BLOOD,URINE 2+ (Negative); PROTEIN,URINE NEGATIVE (Negative)
[2022-12-02 01:34] LABS: POTASSIUM,K 3.3 mEq/L (3.5-5.1)
[2022-12-02] MEDS ORDERED: Iopamidol 755 Mg/ML 100 ML Bottle IVPUSH ONE (01:57)
[2022-12-02] MEDS ORDERED: Sodium Chloride 0.9% 100 ML IV SCH (02:00)
[2022-12-02 02:12] LABS: AMORPHOUS SEDIMENT,URINE RARE /hpf (NOT SEEN); BACTERIA,URINE FEW /hpf (FEW); EPITHELIAL CELLS,URINE 0-5 /hpf (0-5); MUCUS,URINE NOT SEEN /hpf (FEW); WBC,URINE 0-5 /hpf (0-5)
[2022-12-02 06:39] VITALS: BP 117/65; PULSE 65
== END 2022-12-02 06:13 | disposition home or self-care (01) ==
LOC: JD.ED 00:11
DX: R10.84 Generalized abdominal pain (principal); R42 Dizziness and giddiness; I10 Essential (primary) hypertension; Z79.01 Long term (current) use of anticoagulants; Z91.048 Other nonmedicinal substance allergy status; Z79.899 Other long term (current) drug therapy
CPT/HCPCS: 36415; 71260; 74177; 80053; 81001; 83605; 83690; 84484; 85025; 93005; 96360; 99285; J3490; J7120; Q9967; 93010; 99284